=== PATIENT | female | born 1940 | race Caucasian/White ===

== ENCOUNTER 2016-05-14 00:35 | Inpatient (IN) | payer OTHER ==
[~2016-05-14] VITALS: Ht 157.5 cm; Wt 97.5 kg
[~2016-05-14 00:35] MED LIST: ACETAMINOPHEN325 M1 PO; ADVAIR HFA120 INHALA IH; AMLODIPINE BESY10 MG PO; AMLODIPINE BESYL5 MG PO; ANALGESIC325 M1 PO; ASCORBIC ACID250 MG PO; ASPIR 8181 M1 PO; ASPIR-LOW81 MG PO; ASPIRIN BUFFER325 MG PO; ASPIRIN EC325 MG PO; ASPIRIN325 MG PO; ATORVASTATIN CA20 MG PO; ATORVASTATIN CA40 MG PO; ATORVASTATIN CA80 MG PO; AZO95 MG PO; BACTRIM,SEPT1 TABLE1 PO; BACTRIM,SEPT1 TABLET PO; BUDEPRION XL300 MG PO; BUPROPION HCL150 M1 PO; CARVEDILOL12.5 MG PO; CARVEDILOL25 MG PO; CARVEDILOL3.125 MG PO; CARVEDILOL6.25 MG PO; CEFEPIME HCL2 GM IM; CEFTIN500 MG PO; CHOLESTYRAMINE P4 GM PO; CIPROFLOXACIN500 M1 PO; COZAAR25 MG PO; COZAAR50 MG PO; CYANOCOBALAM1000 MCG PO; CYMBALTA PO; CYMBALTA20 MG PO; CYMBALTA60 MG PO; DAILY VALUE1 EACH PO; DAILY VITAMIN1 EAC8 PO; DAILY VITE1 EAC1 PO; DUONEB 2.5-0.5 M3 ML IH; EFFIENT10 MG PO; EFFIENT5 MG PO; FAMOTIDINE20 MG PO; FERROUS SULFAT325 MG PO; FLONASE16 G1 BOTH NARES; FLUOXETINE HCL20 M1 PO; FLUOXETINE HCL40 MG PO; FLUOXETINE HCL60 MG PO; FOLIC ACID0.8 M1 PO; FOLIC ACID1 MG PO; FUROSEMIDE20 MG PO; GLIMEPIRIDE1 MG PO; GLIPIZIDE ER2.5 MG PO; GLIPIZIDE10 M1 PO; GLIPIZIDE10 MG PO; GLIPIZIDE5 MG PO; GLUCOTROL XL10 MG PO; HALFPRIN162 MG PO; IMDUR30 MG PO; ISOSORBIDE MONO10 M1 PO; ISOSORBIDE MONO30 MG PO; ISOSORBIDE MONO60 MG PO; JANUVIA100 MG PO; JANUVIA25 M1 PO; JANUVIA25 MG PO; K-DUR10 MEQ PO; K-DUR20 MEQ PO; K-TAB10 MEQ PO; KEFLEX500 MG PO; KLOR-CON 1010 MEQ PO; KLOR-CON M2020 MEQ PO; LASIX10 MG PO; LASIX20 MG PO; LASIX40 MG PO; LEVAQUIN500 MG PO; LEVOFLOXACIN750 MG PO; LEVOTHROID50 MCG PO; LEVOTHYROXINE50 MCG PO; LEXAPRO10 MG PO; LIPITOR10 MG PO; LIPITOR5 MG PO; LIPITOR80 MG PO; LITE COAT ASPI325 M1 PO; LOSARTAN POTASS25 MG PO; LOSARTAN POTASS50 MG PO; LYRICA75 MG PO; MECLIZINE HCL12.5 M1 PO; MICRO-K10 ME2 PO; MULTIVITAMIN1 EAC2 PO; NITROSTAT0.4 MG SL; NOVOLOG PE100 UNITS/ SC; OXYCODONE-ACET1 EACH PO; OXYGEN MC; OXYTROL TRANSD3.9 MG TD; PLAVIX75 MG PO; POTASSIUM CHLO10 ME3 PO; POTASSIUM CHLO20 ME1 PO; PREDNISONE10 MG PO; PREDNISONE20 MG PO; PREDNISONE5 MG PO; PROAIR HFA8.5 GM IH; PROZAC20 MG PO; PROZAC40 MG PO; QUESTRAN PACKET4 GM PO; SODIUM BICARBO325 MG PO; SYNTHROID50 MCG PO; Sodium Bicarbonate PO; THERAGRAN1 TABLET PO; TOPROL XL100 MG PO; TOPROL XL6.25 MG PO; TOVIAZ4 MG PO; TRADJENTA5 MG PO; TRAMADOL HCL50 MG PO; TYLENOL REGULA325 MG PO; ULTRAM50 MG PO; VALIUM5 MG PO; VANCOMYCIN1.25 GM/25 IV; VENOFER100 MG/51 IV; VENTOLIN HFA18 GM IH; VITAMIN B122500 MCG PO; ZEASORB POWDE70.9 GM TP; ZEASORB-AF70 G1 TP; ZOFRAN4 MG PO; ZOLOFT50 MG PO; ZOLPIDEM TARTRAT5 MG PO; ZYVOX600 MG PO; Zeasorb Antifungal Treatment,Mitrazol Powder TP; [UNRECOGNIZED DRUG - OTHER] PO
[2016-05-14 01:24] LABS: HEMATOCRIT 35.5 % (36.0-46.0); MCH 29.9 PG (29.0-34.0); MCHC 33.5 G/DL (30.0-36.0); MCV 89.2 FL (83-99); MEAN PLAT.VOLUME 12.3 uM^3 (9.5-12.4); PLATELET COUNT 138 K/uL (156-360); RBC DIS.WIDTH-CV 13.2 % (11.8-14.6); RBC DIS.WIDTH-SD 42.2 % (39-53); RED BLOOD COUNT 3.98 M/uL (3.80-5.20); WHITE BLOOD COUNT 10.3 K/uL (4.1-10.2)
[2016-05-14 01:33] LABS: CHLORIDE 108 mEq/L (99-109); POTASSIUM 4.7 mEq/L (3.7-5.4); SODIUM 140 mEq/L (136-147)
[2016-05-14 01:34] LABS: GLUCOSE 227 mg/dL (70-99)
[2016-05-14 01:36] LABS: ANION GAP 7 MEQ/L (2-14)
[2016-05-14 01:38] LABS: GFR ESTIMATE (CALCULATED) 29 mL/min/
[2016-05-14 01:39] LABS: UREA NITROGEN (BUN) 29 mg/dL (9-23)
[2016-05-14 01:44] LABS: TROP-I INTERPRETATION NEGATIVE; TROPONIN-I 0.07 ng/mL (0.0-0.30)
[2016-05-14 04:18] LABS: ADD MIUA? YES; BILIRUBIN NEGATIVE; BLOOD TRACE; COLOR YELLOW ((YELLOW)); GLUCOSE (STRIP) NEGATIVE; KETONES NEGATIVE; LEUKOCYTES NEGATIVE; NITRITE NEGATIVE; PROTEIN (STRIP) >=300; SPECIFIC GRAVITY 1.017 (1.000-1.030); UROBILINOGEN 0.2 MG/DL (0.2-1.0)
[2016-05-14 05:06] LABS: BACTERIA RARE; CASTS PRESENT /LPF; CRYSTALS NONE SEEN; EPITHELIAL CELLS RARE; MUCUS NONE SEEN; RED BLOOD CELLS NONE SEEN /HPF (0-5); UCUL ADDED? NO; WHITE BLOOD CELLS RARE /HPF (0-5)
[2016-05-14 05:07] LABS: FINE GRANULAR CASTS 0-5 /LPF
[2016-05-14 06:40] LABS: TROP-I INTERPRETATION NEGATIVE; TROPONIN-I 0.07 ng/mL (0.0-0.30)
[2016-05-14] MEDS ORDERED: ZOLOFT100 MG PO (07:42)
[2016-05-14] MEDS ORDERED: LYRICA75 MG PO (07:42)
[2016-05-14] MEDS ORDERED: LASIX40 MG PO (07:43)
[2016-05-14] MEDS ORDERED: AMOXICILLIN500 M1 PO (07:44)
[2016-05-14] MEDS ORDERED: K-DUR10 MEQ PO (07:45)
[2016-05-14] MEDS ORDERED: B-121000 MC2 PO (07:45)
[2016-05-14 13:13] LABS: TROP-I INTERPRETATION NEGATIVE; TROPONIN-I 0.04 ng/mL (0.0-0.30)
[2016-05-14 16:28] VITALS: BP 149/68
[2016-05-14 17:10] LABS: POINT-OF-CARE METER ID UU14149396
[2016-05-14 20:38] VITALS: BP 132/62
[2016-05-14 21:50] LABS: POINT-OF-CARE METER ID UU14149398
[2016-05-15] VITALS (7 sets, daily range): BP systolic 123–189; BP diastolic 60–80
[2016-05-15 07:45] LABS: HEMATOCRIT 34.7 % (36.0-46.0); MCH 29.7 PG (29.0-34.0); MCHC 32.6 G/DL (30.0-36.0); MCV 91.3 FL (83-99); PLATELET COUNT 134 K/uL (156-360); RBC DIS.WIDTH-CV 13.6 % (11.8-14.6); RBC DIS.WIDTH-SD 45.1 % (39-53)
[2016-05-15 07:47] LABS: WHITE BLOOD COUNT 6.4 K/uL (4.1-10.2)
[2016-05-15 08:06] LABS: POINT-OF-CARE METER ID UU14149396
[2016-05-15 11:07] LABS: ALKALINE PHOSPHATASE 100 IU/L (3-129); ANION GAP 10 MEQ/L (2-14); CHLORIDE 99 MEQ/L (99-109); GFR ESTIMATE (CALCULATED) 36 mL/min/; GLUCOSE 264 mg/dL (70-99); POTASSIUM 4.2 MEQ/L (3.7-5.4); SAMPLE HEMOLYSIS CHECK 0; SAMPLE ICTERIC CHECK 0; SAMPLE LIPEMIA CHECK 0; SODIUM 139 MEQ/L (136-147); TOTAL BILIRUBIN 0.4 MG/DL (0.0-1.0); UREA NITROGEN (BUN) 33 mg/dL (9-23)
[2016-05-15 12:00] LABS: POINT-OF-CARE METER ID UU13113807
[2016-05-15 17:37] LABS: POINT-OF-CARE METER ID UU13113807
[2016-05-15 22:20] LABS: POINT-OF-CARE METER ID UU13113807; POINT-OF-CARE USER ID AHSUCEG
[2016-05-16 04:00] VITALS: BP 131/54
[2016-05-16 08:17] LABS: POINT-OF-CARE METER ID UU14149396
[2016-05-16 08:31] VITALS: BP 160/88
[2016-05-16 09:50] LABS: HEMATOCRIT 38.8 % (36.0-46.0); MCH 29.6 PG (29.0-34.0); MCHC 32.5 G/DL (30.0-36.0); MCV 91.3 FL (83-99); MEAN PLAT.VOLUME 12.9 uM^3 (9.5-12.4); PLATELET COUNT 144 K/uL (156-360); RBC DIS.WIDTH-CV 13.5 % (11.8-14.6); RBC DIS.WIDTH-SD 45.1 % (39-53); RED BLOOD COUNT 4.25 M/uL (3.80-5.20); WHITE BLOOD COUNT 6.1 K/uL (4.1-10.2)
[2016-05-16 10:12] LABS: ANION GAP 8 MEQ/L (2-14); CHLORIDE 104 MEQ/L (99-109); GFR ESTIMATE (CALCULATED) 42 mL/min/; GLUCOSE 198 mg/dL (70-99); POTASSIUM 4.3 MEQ/L (3.7-5.4); SAMPLE HEMOLYSIS CHECK 0; SAMPLE ICTERIC CHECK 0; SAMPLE LIPEMIA CHECK 0; SODIUM 141 MEQ/L (136-147); UREA NITROGEN (BUN) 39 mg/dL (9-23)
[2016-05-16 11:49] LABS: POINT-OF-CARE METER ID UU14149396
[2016-05-16 12:00] VITALS: BP 145/85
[2016-05-16 16:00] VITALS: BP 144/67
[2016-05-16 16:23] LABS: POINT-OF-CARE METER ID UU14149396
[2016-05-16 18:13] LABS: BASE EXCESS 6.2 mEq/L (-3 to +3); BICARBONATE 31.8 mEq/L (22-26); CARBOXY HGB 1.9 % (0-5); COMMENTS - BLOOD GASES +C; DEVICE NC; METHEMOGLOBIN 1.3 % (0-1.5); O2 FLOW 1 L/MIN; PCO2 49 mm Hg (35-45); PO2 87 mm Hg (80-100); SITE RR +A; TOTAL RESP RATE 20 resp/min; pH 7.42 (7.35-7.45)
[2016-05-16 20:00] VITALS: BP 146/69
[2016-05-16 20:35] LABS: POINT-OF-CARE METER ID UU14149396
[2016-05-17] VITALS: BP 148/70
[2016-05-17 04:00] VITALS: BP 143/65
[2016-05-17 04:26] LABS: HEMATOCRIT 34.1 % (36.0-46.0); MCH 29.7 PG (29.0-34.0); MCHC 32.8 G/DL (30.0-36.0); MCV 90.5 FL (83-99); MEAN PLAT.VOLUME 12.1 uM^3 (9.5-12.4); PLATELET COUNT 136 K/uL (156-360); RBC DIS.WIDTH-SD 41.9 % (39-53); RED BLOOD COUNT 3.77 M/uL (3.80-5.20); WHITE BLOOD COUNT 7.1 K/uL (4.1-10.2)
[2016-05-17 04:40] LABS: CHLORIDE 102 mEq/L (99-109); POTASSIUM 4.2 mEq/L (3.7-5.4); SODIUM 139 mEq/L (136-147)
[2016-05-17 04:41] LABS: GLUCOSE 148 mg/dL (70-99)
[2016-05-17 04:43] LABS: ANION GAP 9 MEQ/L (2-14)
[2016-05-17 04:45] LABS: GFR ESTIMATE (CALCULATED) 39 mL/min/
[2016-05-17 04:46] LABS: UREA NITROGEN (BUN) 44 mg/dL (9-23)
[2016-05-17 07:00] VITALS: BP 162/73
[2016-05-17 08:35] LABS: POINT-OF-CARE METER ID UU14149396
[2016-05-17 11:20] LABS: POINT-OF-CARE METER ID UU14149396
[2016-05-17 11:31] VITALS: BP 129/60
[2016-05-17 15:00] VITALS: BP 121/59
[2016-05-17 16:12] LABS: POINT-OF-CARE METER ID UU14149398
[2016-05-17 19:30] VITALS: BP 133/59
[2016-05-17 21:23] LABS: POINT-OF-CARE METER ID UU14149398
[2016-05-18] VITALS (7 sets, daily range): BP systolic 121–158; BP diastolic 55–70
[2016-05-18 04:16] LABS: EOSINOPHIL (%) 0.5 % (0-5); IMMATURE GRANULOCYTE (%) 0.2 % (0.0-0.7); IMMATURE GRANULOCYTE COUNT 0.2 K/uL; LYMPHOCYTE COUNT 1.3 K/uL (1.0-2.8); MCH 29.9 PG (29.0-34.0); MCHC 33.7 G/DL (30.0-36.0); MCV 88.8 FL (83-99); MEAN PLAT.VOLUME 12.7 uM^3 (9.5-12.4); MONOCYTE (%) 3.3 % (3-12); MONOCYTE COUNT 0.3 K/uL (0-0.8); NEUTROPHIL (%) 80.6 % (45-76); NEUTROPHIL COUNT 6.8 K/uL (1.8-6.4); PLATELET COUNT 160 K/uL (156-360); RBC DIS.WIDTH-CV 12.8 % (11.8-14.6); RBC DIS.WIDTH-SD 40.9 % (39-53); RED BLOOD COUNT 3.94 M/uL (3.80-5.20); WHITE BLOOD COUNT 8.4 K/uL (4.1-10.2)
[2016-05-18 04:32] LABS: CHLORIDE 100 mEq/L (99-109); POTASSIUM 4.9 mEq/L (3.7-5.4); SODIUM 135 mEq/L (136-147)
[2016-05-18 04:36] LABS: ANION GAP 8 MEQ/L (2-14); TOTAL BILIRUBIN 0.2 mg/dL (0.0-1.0)
[2016-05-18 04:38] LABS: ALKALINE PHOSPHATASE 84 IU/L (3-129); GFR ESTIMATE (CALCULATED) 29 mL/min/
[2016-05-18 04:39] LABS: UREA NITROGEN (BUN) 63 mg/dL (9-23)
[2016-05-18 04:41] LABS: URIC ACID 9.3 mg/dL (3.1-9.2)
[2016-05-18 04:54] LABS: GLUCOSE 286 mg/dL (70-99)
[2016-05-18 08:11] LABS: POINT-OF-CARE METER ID UU14149398
[2016-05-18 12:01] LABS: POINT-OF-CARE METER ID UU14149396
[2016-05-18] MEDS ORDERED: PREDNISONE10 M1 PO (12:46)
[2016-05-18] MEDS ORDERED: AMLODIPINE BESYL5 MG PO (12:46)
[2016-05-18] MEDS ORDERED: JANUVIA25 M1 PO (12:46)
[2016-05-18] MEDS ORDERED: SPIRIVA RESPIMAT4 GM IH (12:46)
[2016-05-18] MEDS ORDERED: HYDROCHLOROTH12.5 M3 PO (12:46)
[2016-05-18] MEDS ORDERED: ADVAIR HFA120 INHALA IH (12:46)
[2016-05-18 16:28] LABS: POINT-OF-CARE METER ID UU14149396
[2016-05-18 21:35] LABS: POINT-OF-CARE METER ID UU14149396
[2016-05-19 04:58] VITALS: BP 145/60
[2016-05-19 07:24] LABS: POINT-OF-CARE METER ID UU14149398
[2016-05-19 07:52] VITALS: BP 152/69
[2016-05-19 11:34] LABS: POINT-OF-CARE METER ID UU14149398
[2016-05-19 11:58] VITALS: BP 140/70
[2016-05-19 12:55] LABS: ANION GAP 10 MEQ/L (2-14); CHLORIDE 98 MEQ/L (99-109); GFR ESTIMATE (CALCULATED) 33 mL/min/; GLUCOSE 315 mg/dL (70-99); SAMPLE HEMOLYSIS CHECK 2; SAMPLE ICTERIC CHECK 0; SAMPLE LIPEMIA CHECK 0; SODIUM 133 MEQ/L (136-147); UREA NITROGEN (BUN) 68 mg/dL (9-23)
[2016-05-19 13:45] LABS: POTASSIUM 4.7 MEQ/L (3.7-5.4)
== END 2016-05-19 13:45 | disposition home health service (06) | DRG 292 ==
LOC: EME 00:35 → EDOF 03:31 → 4SOUTH 14:13 → EDOF 14:13 → 4SOUTH 15:55
PROVIDERS: Emergency Medicine; Hospitalist; Internal Medicine; Internal Medicine Cardiovascular Disease; Internal Medicine Pulmonary Disease; Physician Assistant
PROC: 5A09357 Assistance with Respiratory Ventilation, Less than 24 Consecutive Hours, Continuous Positive Airway Pressure (ICD-10-PCS; principal; 2016-05-16)
DX: I50.33 Acute on chronic diastolic (congestive) heart failure (principal); N17.9 Acute kidney failure, unspecified; J44.1 Chronic obstructive pulmonary disease with (acute) exacerbation; I12.9 Hypertensive chronic kidney disease with stage 1 through stage 4 chronic kidney disease, or unspecified chronic kidney disease; N18.3 Chronic kidney disease, stage 3 (moderate); L03.032 Cellulitis of left toe; I42.9 Cardiomyopathy, unspecified; E11.65 Type 2 diabetes mellitus with hyperglycemia; Z99.81 Dependence on supplemental oxygen; Z91.11 Patient's noncompliance with dietary regimen; Z91.19 Patient's noncompliance with other medical treatment and regimen; G47.33 Obstructive sleep apnea (adult) (pediatric); D64.9 Anemia, unspecified; D69.6 Thrombocytopenia, unspecified; I25.10 Atherosclerotic heart disease of native coronary artery without angina pectoris; I45.10 Unspecified right bundle-branch block; I73.9 Peripheral vascular disease, unspecified; E78.5 Hyperlipidemia, unspecified; Z95.1 Presence of aortocoronary bypass graft; E66.01 Morbid (severe) obesity due to excess calories; Z95.5 Presence of coronary angioplasty implant and graft; Z87.891 Personal history of nicotine dependence; Z90.12 Acquired absence of left breast and nipple; Z85.3 Personal history of malignant neoplasm of breast; Z68.39 Body mass index [BMI] 39.0-39.9, adult; Z95.810 Presence of automatic (implantable) cardiac defibrillator
CPT/HCPCS: 36600; 71010; 80048; 80053; 81003; 82803; 82948; 83880; 84484; 84550; 84999; 85025; 85027; 87040; 93005; 93970; 94640; 94640 76; 94799; 97530 GP; 99202; 99281; 99285; J0690; J1644; J1815; J1940; J7050; J7512

== ENCOUNTER 2017-05-02 02:54 | Observation (INO) | payer OTHER ==
[~2017-05-02] VITALS: Ht 167.6 cm; Wt 102.8 kg
[~2017-05-02 02:54] MED LIST changes: +AMOXICILLIN500 M1 PO; +B-121000 MC2 PO; +HYDROCHLOROTH12.5 M3 PO; +PREDNISONE10 M1 PO; +SPIRIVA RESPIMAT4 GM IH; +ZOLOFT100 MG PO
[2017-05-02 03:33] LABS: HEMATOCRIT 32.4 % (36.0-46.0); HEMOGLOBIN 10.9 G/DL (11.9-15.5); MCH 32.1 PG (29.0-34.0); MCHC 33.6 G/DL (30.0-36.0); MCV 95.3 FL (83-99); PLATELET COUNT 113 K/uL (156-360); RBC DIS.WIDTH-CV 12.5 % (11.8-14.6); RBC DIS.WIDTH-SD 43.4 % (39-53); WHITE BLOOD COUNT 8.7 K/uL (4.1-10.2)
[2017-05-02 03:44] LABS: ALBUMIN 3.3 g/dL (3.2-4.8)
[2017-05-02 03:45] LABS: CHLORIDE 108 mEq/L (99-109); POTASSIUM 4.1 mEq/L (3.7-5.4); SODIUM 143 mEq/L (136-147)
[2017-05-02 03:47] LABS: GLUCOSE 176 mg/dL (70-99); TOTAL PROTEIN 5.9 g/dL (6.4-8.3)
[2017-05-02 03:49] LABS: TOTAL BILIRUBIN 0.4 mg/dL (0.0-1.0)
[2017-05-02 03:50] LABS: ALKALINE PHOSPHATASE 69 IU/L (3-129)
[2017-05-02 03:51] LABS: CREATININE 1.5 mg/dL (0.6-1.3); GFR ESTIMATE (CALCULATED) 36 mL/min/
[2017-05-02 03:52] LABS: AST (GOT) 13 IU/L (2-34); UREA NITROGEN (BUN) 39 mg/dL (9-23)
[2017-05-02 03:54] LABS: ALT (GPT) 9 IU/L (3-49); LIPASE 38 U/L (1.0-51.0)
[2017-05-02 03:55] LABS: TROP-I INTERPRETATION NEGATIVE; TROPONIN-I 0.03 ng/mL (0.0-0.30)
[2017-05-02 04:00] LABS: APPEARANCE SL.HAZY ((CLEAR)); BILIRUBIN NEGATIVE; BLOOD NEGATIVE; COLOR YELLOW ((YELLOW)); GLUCOSE (STRIP) NEGATIVE; KETONES NEGATIVE; LEUKOCYTES NEGATIVE; NITRITE NEGATIVE; PROTEIN (STRIP) 100; SPECIFIC GRAVITY 1.018 (1.000-1.030); UROBILINOGEN 0.2 MG/DL (0.2-1.0)
[2017-05-02 04:05] LABS: BACTERIA NONE SEEN /HPF; EPITHELIAL CELLS 1+ /HPF; HYALINE CASTS 0-5 /LPF; MUCUS NONE SEEN /LPF; RED BLOOD CELLS 0-5 /HPF (0-5); UCUL ADDED? NO; WHITE BLOOD CELLS 0-5 /HPF (0-5)
[2017-05-02] MEDS ORDERED: METFORMIN HCL500 M4 PO (05:43)
[2017-05-02] MEDS ORDERED: FEOSOL325 MG PO (05:44)
[2017-05-02] MEDS ORDERED: CARVEDILOL25 MG PO (05:45)
[2017-05-02] MEDS ORDERED: NITROGLYCERIN0.4 MG SL (05:50)
[2017-05-02] MEDS ORDERED: EZETIMIBE10 MG PO (05:51)
[2017-05-02 07:45] VITALS: BP 190/78
[2017-05-02 11:22] VITALS: BP 179/75
[2017-05-02] MEDS ORDERED: ASCORBIC ACID500 M3 PO (12:19)
[2017-05-02] MEDS ORDERED: DUONEB 2.5-0.5 M3 ML AEROSOL (12:19)
[2017-05-02 16:16] VITALS: BP 168/70
[2017-05-02 20:00] VITALS: BP 145/62
[2017-05-02 22:55] VITALS: BP 177/73
[2017-05-03 02:59] VITALS: BP 144/65
[2017-05-03 09:14] VITALS: BP 166/97
[2017-05-03 11:56] VITALS: BP 173/72
[2017-05-03 16:19] VITALS: BP 162/67
[2017-05-03 20:00] VITALS: BP 137/58
[2017-05-04 06:56] VITALS: BP 157/67
[2017-05-04 12:00] VITALS: BP 164/67
[2017-05-04 15:45] VITALS: BP 140/53
[2017-05-04 20:00] VITALS: BP 177/70
[2017-05-04 23:18] VITALS: BP 129/51
[2017-05-05 07:45] VITALS: BP 152/63
[2017-05-05 11:11] VITALS: BP 119/52
[2017-05-05 14:53] VITALS: BP 142/88
[2017-05-05 19:10] VITALS: BP 179/75
[2017-05-05 23:19] VITALS: BP 180/72
[2017-05-06 04:10] VITALS: BP 166/70
[2017-05-06 08:46] VITALS: BP 133/62
[2017-05-06 11:27] VITALS: BP 145/62
[2017-05-06] MEDS ORDERED: LASIX20 MG PO (13:21)
[2017-05-06] MEDS ORDERED: LOSARTAN POTASS25 MG PO (13:21)
[2017-05-06 20:00] VITALS: BP 173/72
[2017-05-06 22:47] LABS: CHLORIDE 105 MEQ/L (99-109); CREATININE 1.6 MG/DL (0.6-1.3); GFR ESTIMATE (CALCULATED) 33 mL/min/; GLUCOSE 183 mg/dL (70-99); POTASSIUM 4.2 MEQ/L (3.7-5.4); SODIUM 143 MEQ/L (136-147); UREA NITROGEN (BUN) 47 mg/dL (9-23)
[2017-05-07 03:31] VITALS: BP 117/55
[2017-05-07 09:20] VITALS: BP 164/65
[2017-05-07 12:08] VITALS: BP 156/75
== END 2017-05-07 14:19 ==
LOC: EME 02:54 → 5WEST 05:18 → EDOF 05:18 → ENRESERV 05:25 → 5WEST 07:32 → ENPENDDIS 05-07 09:15 → 5WEST 05-07 14:19
PROVIDERS: Emergency Medicine; Internal Medicine; Physician Assistant Medical
DX: I13.0 Hypertensive heart and chronic kidney disease with heart failure and stage 1 through stage 4 chronic kidney disease, or unspecified chronic kidney disease (principal); I50.33 Acute on chronic diastolic (congestive) heart failure; N18.3 Chronic kidney disease, stage 3 (moderate); E11.22 Type 2 diabetes mellitus with diabetic chronic kidney disease; R26.89 Other abnormalities of gait and mobility; R29.6 Repeated falls; Z91.81 History of falling; E11.42 Type 2 diabetes mellitus with diabetic polyneuropathy; E11.65 Type 2 diabetes mellitus with hyperglycemia; G25.0 Essential tremor; I25.10 Atherosclerotic heart disease of native coronary artery without angina pectoris; Z99.3 Dependence on wheelchair; E78.5 Hyperlipidemia, unspecified; J44.9 Chronic obstructive pulmonary disease, unspecified; G47.33 Obstructive sleep apnea (adult) (pediatric); Z85.3 Personal history of malignant neoplasm of breast; I73.9 Peripheral vascular disease, unspecified; Z95.820 Peripheral vascular angioplasty status with implants and grafts; Z95.810 Presence of automatic (implantable) cardiac defibrillator; Z95.1 Presence of aortocoronary bypass graft; Z60.2 Problems related to living alone; Z87.891 Personal history of nicotine dependence; E66.01 Morbid (severe) obesity due to excess calories; Z68.36 Body mass index [BMI] 36.0-36.9, adult; Z79.82 Long term (current) use of aspirin; Z90.12 Acquired absence of left breast and nipple; Z82.49 Family history of ischemic heart disease and other diseases of the circulatory system; Z88.8 Allergy status to other drugs, medicaments and biological substances; Z88.5 Allergy status to narcotic agent; Z91.09 Other allergy status, other than to drugs and biological substances
CPT/HCPCS: 71010; 72100; 80048; 80053; 81003; 82948; 83690; 83880; 84484; 85027; 93005; 94640; 94640 76; 97530 GO; 97530 GP; 99202; 99281; 99285; G0378; G8978 GP CM; G8979 GP CL; G8980 GP CM; G8987 GO CL; G8988 GO CK; G8989 GO CL; J1644; J1815; J1940